=== PATIENT | male | born 1965 | race Hispanic/Latino ===

== ENCOUNTER 2022-01-29 12:09 | Inpatient (IN) | payer MEDICARE ==
[~2022-01-29] VITALS: Ht 188 cm; Wt 106.1 kg
[~2022-01-29 12:09] MED LIST: CINA30 PO; CLON0.3T PO; DILT240C97 PO; FOLI0.8T22 PO; FOLI0.8T3 PO; HYDR100T27 PO; PRED10TA3 PO; RANI150T7 PO; SEVE800T7 PO
[2022-01-29 12:35] LABS: BASOPHILS % (AUTO) 0.7 % (0.0-5.0); EOSINOPHILS % (AUTO) 3.6 % (0.0-8.0); HEMATOCRIT 31.3 % (42-54); LYMPHOCYTES % (AUTO) 6.9 % (21.0-51.0); MEAN CORPUSCULAR HEMOGLOBIN 31.4 pg (27.0-33.0); MEAN CORPUSCULAR HGB CONC 31.9 g/dL (32.0-36.0); MEAN CORPUSCULAR VOLUME 98.4 fL (79-99); MONOCYTES % (AUTO) 4.1 % (3.0-13.0); NEUTROPHILS % (AUTO) 84.3 % (40.0-77.0); PLATELET COUNT (AUTO) 162 K/uL (130-400); RED BLOOD CELL COUNT(AUTO) 3.18 MIL/uL (4.50-6.20); RED CELL DISTRIBUTION WIDTH 15.4 % (11.0-15.5)
[2022-01-29] MEDS ORDERED: MORPHINE 2 MG SYG IVP ONE ×2 (13:00→16:30)
[2022-01-29] MEDS ORDERED: ONDANSETRON 4MG INJ IVP ONE (13:00)
[2022-01-29 13:41] LABS: ALBUMIN 3.1 g/dL (3.5-5.0); BILIRUBIN,TOTAL 0.5 mg/dL (0.2-1.0); CREATININE 7.3 mg/dL (0.5-1.5); POTASSIUM 4.1 mmol/L (3.5-5.1); TOTAL PROTEIN, SERUM 8.4 g/dL (6.0-8.3)
[2022-01-29] MEDS ORDERED: ONDANSETRON 4MG INJ ONE (14:11)
[2022-01-29] MEDS ORDERED: MORPHINE 2 MG SYG ONE ×2 (14:11→20:40)
[2022-01-29 16:14] LABS: INR 1.08 (0.85-1.15); PROTHROMBIN TIME 11.7 SEC (9.6-11.6)
[2022-01-29] MEDS: HYDRALAZINE 25MG TABLET PO SCH ×2 (17:00→21:00)
[2022-01-29] MEDS ORDERED: CEFEPIME HCL 1 GM VIAL IVP SCH (17:00)
[2022-01-29] MEDS ORDERED: HYDRALAZINE 20MG/ML VIAL IV PRN (18:30)
[2022-01-29] MEDS ORDERED: IOHEXOL 350 MG/ML 100ML INFUS..BTL IV ONE ×2 (19:05→20:48)
[2022-01-29] MEDS: HYDROMORPHONE 0.5 MG SYG (0.5MG/0.5ML) IVP PRN (19:35)
[2022-01-29] MEDS ORDERED: GLUCAGON 1MG KIT 1 MG ML IM PRN (20:00)
[2022-01-29] MEDS ORDERED: DEXTROSE 50%-WATER 50 ML DISP.SYRIN IV PRN (20:00)
[2022-01-29 20:18] LABS: HEMATOCRIT 32.1 % (42-54)
[2022-01-29] MEDS: CLONIDINE HCL 0.3 MG TABLET PO SCH (21:00)
[2022-01-29] MEDS: PANTOPRAZOLE 40 MG/VIAL IVP SCH (21:14)
[2022-01-29] MEDS: LINEZOLID 600 MG/ISO-OSM 300 ML IV SCH (21:14)
[2022-01-29 21:17] LABS: HEMATOCRIT 29.5 % (42-54)
[2022-01-29] MEDS: ACETAMINOPHEN 500 MG TABLET PO PRN (21:35)
[2022-01-29] MEDS: METRONIDAZOLE 500MG/100ML BAG 100 ML IVPB SCH (23:01)
[2022-01-30] VITALS (37 sets, daily range): BP systolic 93–180; BP diastolic 47–103
[2022-01-30] MEDS: ACETAMINOPHEN 500 MG TABLET PO PRN ×2 (02:07→06:04)
[2022-01-30] MEDS ORDERED: HYDRALAZINE 25MG TABLET PO PRN (02:30)
[2022-01-30] MEDS ORDERED: LABETALOL 20MG VIAL IV PRN (02:30)
[2022-01-30] MEDS: METRONIDAZOLE 500MG/100ML BAG 100 ML IVPB SCH ×3 (05:58→22:00)
[2022-01-30] MEDS: LINEZOLID 600 MG/ISO-OSM 300 ML IV SCH ×2 (05:58→20:31)
[2022-01-30 06:16] LABS: HEMATOCRIT 27.4 % (42-54)
[2022-01-30 06:26] LABS: POTASSIUM 5.9 mmol/L (3.5-5.1)
[2022-01-30 06:28] LABS: CREATININE 9.3 mg/dL (0.5-1.5)
[2022-01-30 06:30] LABS: INR 1.18 (0.85-1.15); PROTHROMBIN TIME 12.7 SEC (9.6-11.6)
[2022-01-30 06:32] LABS: PARTIAL THROMBOPLASTIN TIME 27.8 SEC (26.3-35.5)
[2022-01-30] MEDS: CEFEPIME HCL 1 GM VIAL IVP SCH (08:27)
[2022-01-30] MEDS: CLONIDINE HCL 0.3 MG TABLET PO SCH ×2 (09:00→20:31)
[2022-01-30] MEDS: HYDRALAZINE 25MG TABLET PO SCH ×4 (09:00→20:31)
[2022-01-30] MEDS: HYDROMORPHONE 0.5 MG SYG (0.5MG/0.5ML) IVP PRN ×2 (09:51→15:02)
[2022-01-30] MEDS ORDERED: CEFAZOLIN SODIUM 1 GM VIAL ONE (09:59)
[2022-01-30] MEDS ORDERED: KETAMINE 50MG/ML SYRINGE 50 MG/ML DISP.SYRIN IV ONE (10:14)
[2022-01-30] MEDS ORDERED: PROPOFOL 10 MG/ML 20ML VIAL IV ONE (10:14)
[2022-01-30] MEDS ORDERED: MIDAZOLAM HCL 1 MG/ML 2ML VIAL ONE (10:15)
[2022-01-30] MEDS ORDERED: ROCURONIUM 10MG/1ML SYR 10 MG/ML ML ONE ×2 (10:24→10:47)
[2022-01-30] MEDS ORDERED: PHENYLEPHRINE HCL 10 MG/ML 1ML VIAL IV ONE ×3 (10:33→12:35)
[2022-01-30] MEDS ORDERED: EPHEDRINE SULFATE 50 MG/ML AMPULE ONE (11:30)
[2022-01-30] MEDS ORDERED: PROTAMINE SULFATE 10 MG/ML 5 ML VIAL ONE (13:07)
[2022-01-30] MEDS ORDERED: PROTAMINE SULFATE 10 MG/ML 25ML VIAL IV ONE (13:08)
[2022-01-30] MEDS ORDERED: ONDANSETRON 4MG INJ ONE (13:10)
[2022-01-30] MEDS ORDERED: NEOSTIGMINE 5MG/5ML SYR IV ONE (13:20)
[2022-01-30] MEDS ORDERED: GLYCOPYRROLATE 1 MG/5 ML SYRINGE ONE (13:20)
[2022-01-30] MEDS ORDERED: ALBUMIN (HUMAN) 5% 250 ML IV ONE (13:22)
[2022-01-30] MEDS ORDERED: 0.9%NACL 1000ML 1,000 ML IV ONE (14:16)
[2022-01-30] MEDS ORDERED: DIPHENHYDRAMINE HCL 25 MG CAPSULE PO PRN (15:30)
[2022-01-30] MEDS ORDERED: DEXTROSE 50%-WATER 50 ML DISP.SYRIN IV PRN (17:30)
[2022-01-30] MEDS ORDERED: GLUCAGON 1MG KIT 1 MG ML IM PRN (17:30)
[2022-01-30 18:29] LABS: HEPATITIS B SURFACE ANTIGEN Non-Reactive (Negative)
[2022-01-30] MEDS: PANTOPRAZOLE 40 MG/VIAL IVP SCH (20:31)
[2022-01-30] MEDS: DOCUSATE SODIUM 100 MG CAP PO SCH (20:31)
[2022-01-30] MEDS: INSULIN HUMULIN R 100 UNIT/ML 3ML SQ SCH (20:35)
[2022-01-31] VITALS (13 sets, daily range): BP systolic 106–153; BP diastolic 54–82
[2022-01-31] MEDS: METRONIDAZOLE 500MG/100ML BAG 100 ML IVPB SCH ×3 (00:27→13:20)
[2022-01-31] MEDS: INSULIN HUMULIN R 100 UNIT/ML 3ML SQ SCH ×4 (07:30→20:35)
[2022-01-31] MEDS: LINEZOLID 600 MG/ISO-OSM 300 ML IV SCH ×2 (08:00→20:26)
[2022-01-31] MEDS: POLYETHYLENE GLYCOL 3350 17 GM POWD.PACK PO SCH (08:00)
[2022-01-31] MEDS: ASPIRIN 81 MG EC TAB PO SCH (08:01)
[2022-01-31] MEDS: CEFEPIME HCL 1 GM VIAL IVP SCH (08:02)
[2022-01-31] MEDS: HYDRALAZINE 25MG TABLET PO SCH ×4 (08:02→20:36)
[2022-01-31] MEDS: DOCUSATE SODIUM 100 MG CAP PO SCH ×2 (08:02→20:26)
[2022-01-31 08:37] LABS: EOSINOPHILS % (AUTO) 1.7 % (0.0-8.0); HEMATOCRIT 21.3 % (42-54); LYMPHOCYTES % (AUTO) 15.5 % (21.0-51.0); MEAN CORPUSCULAR HEMOGLOBIN 31.3 pg (27.0-33.0); MEAN CORPUSCULAR HGB CONC 32.9 g/dL (32.0-36.0); MEAN CORPUSCULAR VOLUME 95.1 fL (79-99); MONOCYTES % (AUTO) 6.5 % (3.0-13.0); NEUTROPHILS % (AUTO) 74.7 % (40.0-77.0); PLATELET COUNT (AUTO) 179 K/uL (130-400); RED BLOOD CELL COUNT(AUTO) 2.24 MIL/uL (4.50-6.20); RED CELL DISTRIBUTION WIDTH 16.5 % (11.0-15.5); WHITE BLOOD COUNT (AUTO) 7.8 K/uL (4.8-10.8)
[2022-01-31] MEDS: CLONIDINE HCL 0.3 MG TABLET PO SCH ×2 (09:29→20:36)
[2022-01-31] MEDS: HYDROMORPHONE 0.5 MG SYG (0.5MG/0.5ML) IVP PRN ×2 (09:44→14:50)
[2022-01-31 10:24] LABS: POTASSIUM 5.6 mmol/L (3.5-5.1)
[2022-01-31 11:07] LABS: CREATININE 8.7 mg/dL (0.5-1.5)
[2022-01-31 11:14] LABS: MAGNESIUM 5.7 mg/dL (1.80-2.40); PHOSPHORUS 2.1 mg/dL (2.5-4.9)
[2022-01-31] MEDS: SEVELAMER HCL 800 MG TABLET PO SCH ×2 (11:24→16:03)
[2022-01-31 15:35] LABS: HEMATOCRIT 21.1 % (42-54)
[2022-01-31] MEDS ORDERED: MAGNESIUM CITRATE 296 ML SOLUTION PO ONE (17:30)
[2022-01-31] MEDS: PANTOPRAZOLE 40 MG/VIAL IVP SCH (20:26)
[2022-02-01] VITALS (22 sets, daily range): BP systolic 106–141; BP diastolic 55–84
[2022-02-01 00:01] LABS: HEMATOCRIT 21.7 % (42-54)
[2022-02-01 04:34] LABS: MEAN CORPUSCULAR HEMOGLOBIN 29.9 pg (27.0-33.0); MEAN CORPUSCULAR HGB CONC 33.8 g/dL (32.0-36.0); MEAN CORPUSCULAR VOLUME 88.5 fL (79-99); PLATELET COUNT (AUTO) 130 K/uL (130-400); RED BLOOD CELL COUNT(AUTO) 2.34 MIL/uL (4.50-6.20); RED CELL DISTRIBUTION WIDTH 18.3 % (11.0-15.5); WHITE BLOOD COUNT (AUTO) 5.6 K/uL (4.8-10.8)
[2022-02-01 04:52] LABS: POTASSIUM 5.2 mmol/L (3.5-5.1)
[2022-02-01 04:55] LABS: CREATININE 10.2 mg/dL (0.5-1.5)
[2022-02-01 05:00] LABS: HEMATOCRIT 20.7 % (42-54)
[2022-02-01] MEDS: INSULIN HUMULIN R 100 UNIT/ML 3ML SQ SCH ×4 (06:16→21:00)
[2022-02-01] MEDS: METRONIDAZOLE 500MG/100ML BAG 100 ML IVPB SCH ×3 (06:18→22:04)
[2022-02-01] MEDS: POLYETHYLENE GLYCOL 3350 17 GM POWD.PACK PO SCH (09:22)
[2022-02-01 09:23] LABS: INR 1.27 (0.85-1.15); PROTHROMBIN TIME 13.7 SEC (9.6-11.6)
[2022-02-01] MEDS: CLONIDINE HCL 0.3 MG TABLET PO SCH ×2 (09:23→22:12)
[2022-02-01 09:24] LABS: PARTIAL THROMBOPLASTIN TIME 36.1 SEC (26.3-35.5)
[2022-02-01] MEDS: CEFEPIME HCL 1 GM VIAL IVP SCH (09:24)
[2022-02-01] MEDS: LINEZOLID 600 MG/ISO-OSM 300 ML IV SCH ×2 (09:25→22:03)
[2022-02-01] MEDS: ASPIRIN 81 MG EC TAB PO SCH (09:25)
[2022-02-01] MEDS: HYDRALAZINE 25MG TABLET PO SCH ×4 (09:26→22:11)
[2022-02-01] MEDS: SEVELAMER HCL 800 MG TABLET PO SCH ×3 (09:29→16:16)
[2022-02-01] MEDS: DOCUSATE SODIUM 100 MG CAP PO SCH ×2 (09:51→22:12)
[2022-02-01] MEDS ORDERED: 0.9%NACL 1000ML 1,000 ML IV ONE (10:49)
[2022-02-01 12:21] LABS: HEMATOCRIT 21.6 % (42-54)
[2022-02-01] MEDS: ACETAMINOPHEN 500 MG TABLET PO PRN (13:55)
[2022-02-01] MEDS ORDERED: HEPARIN 5,000 UNIT VIAL ONE (14:21)
[2022-02-01] MEDS: HYDROMORPHONE 0.5 MG SYG (0.5MG/0.5ML) IVP PRN (17:06)
[2022-02-01] MEDS: PANTOPRAZOLE 40 MG/VIAL IVP SCH (22:02)
[2022-02-02] VITALS (8 sets, daily range): BP systolic 107–137; BP diastolic 55–73
[2022-02-02 04:22] LABS: HEMATOCRIT 22.7 % (42-54); MEAN CORPUSCULAR HEMOGLOBIN 29.6 pg (27.0-33.0); MEAN CORPUSCULAR HGB CONC 32.2 g/dL (32.0-36.0); MEAN CORPUSCULAR VOLUME 91.9 fL (79-99); RED BLOOD CELL COUNT(AUTO) 2.47 MIL/uL (4.50-6.20); WHITE BLOOD COUNT (AUTO) 5.5 K/uL (4.8-10.8)
[2022-02-02 04:39] LABS: POTASSIUM 4.9 mmol/L (3.5-5.1)
[2022-02-02 04:55] LABS: CREATININE 8.7 mg/dL (0.5-1.5)
[2022-02-02] MEDS: METRONIDAZOLE 500MG/100ML BAG 100 ML IVPB SCH (06:01)
[2022-02-02] MEDS: INSULIN HUMULIN R 100 UNIT/ML 3ML SQ SCH ×4 (06:01→21:00)
[2022-02-02] MEDS: ASPIRIN 81 MG EC TAB PO SCH (08:07)
[2022-02-02] MEDS: SEVELAMER HCL 800 MG TABLET PO SCH ×3 (08:07→16:45)
[2022-02-02] MEDS: POLYETHYLENE GLYCOL 3350 17 GM POWD.PACK PO SCH (08:08)
[2022-02-02] MEDS: CLONIDINE HCL 0.3 MG TABLET PO SCH ×2 (08:10→21:28)
[2022-02-02] MEDS: CEFEPIME HCL 1 GM VIAL IVP SCH (08:10)
[2022-02-02] MEDS: DOCUSATE SODIUM 100 MG CAP PO SCH ×2 (08:10→21:28)
[2022-02-02] MEDS: HYDRALAZINE 25MG TABLET PO SCH ×4 (08:32→21:28)
[2022-02-02] MEDS: LINEZOLID 600 MG/ISO-OSM 300 ML IV SCH (08:32)
[2022-02-02] MEDS ORDERED: PHARMACY COMMUNICATION MISC SCH (09:30)
[2022-02-02] MEDS: MEROPENEM 500 MG VIAL IVP SCH ×2 (10:25→21:27)
[2022-02-02] MEDS: HYDROMORPHONE 0.5 MG SYG (0.5MG/0.5ML) IVP PRN (14:30)
[2022-02-02] MEDS: PANTOPRAZOLE 40 MG/VIAL IVP SCH (21:27)
[2022-02-03] VITALS (18 sets, daily range): BP systolic 118–145; BP diastolic 59–84
[2022-02-03] MEDS: INSULIN HUMULIN R 100 UNIT/ML 3ML SQ SCH ×2 (06:02→11:30)
[2022-02-03 07:29] LABS: HEMATOCRIT 21.5 % (42-54); MEAN CORPUSCULAR HEMOGLOBIN 29.5 pg (27.0-33.0); MEAN CORPUSCULAR HGB CONC 32.6 g/dL (32.0-36.0); MEAN CORPUSCULAR VOLUME 90.7 fL (79-99); RED BLOOD CELL COUNT(AUTO) 2.37 MIL/uL (4.50-6.20); RED CELL DISTRIBUTION WIDTH 17.7 % (11.0-15.5); WHITE BLOOD COUNT (AUTO) 5.6 K/uL (4.8-10.8)
[2022-02-03 07:40] LABS: POTASSIUM 4.9 mmol/L (3.5-5.1)
[2022-02-03 07:42] LABS: CREATININE 11.1 mg/dL (0.5-1.5)
[2022-02-03] MEDS: HYDRALAZINE 25MG TABLET PO SCH ×2 (09:00→13:00)
[2022-02-03] MEDS: CLONIDINE HCL 0.3 MG TABLET PO SCH (09:00)
[2022-02-03] MEDS: SEVELAMER HCL 800 MG TABLET PO SCH ×2 (09:44→13:30)
[2022-02-03] MEDS: POLYETHYLENE GLYCOL 3350 17 GM POWD.PACK PO SCH (09:45)
[2022-02-03] MEDS: DOCUSATE SODIUM 100 MG CAP PO SCH (09:45)
[2022-02-03] MEDS: CEFEPIME HCL 1 GM VIAL IVP SCH (09:45)
[2022-02-03] MEDS: MEROPENEM 500 MG VIAL IVP SCH (09:45)
[2022-02-03] MEDS: ASPIRIN 81 MG EC TAB PO SCH (09:59)
== END 2022-02-03 16:48 | DRG 252 ==
LOC: EDH 12:09 → EDHIP 17:51 → 2BH 01-30 00:41 → 2DH 01-31 23:10
PROVIDERS: ADMIT Hospitalist; ATTEND Hospitalist
PROC: 30233N1 Transfusion of Nonautologous Red Blood Cells into Peripheral Vein, Percutaneous Approach (ICD-10-PCS; 2022-01-30)
PROC: 04UL07Z Supplement Left Femoral Artery with Autologous Tissue Substitute, Open Approach (ICD-10-PCS; 2022-01-30)
PROC: 04QL0ZZ Repair Left Femoral Artery, Open Approach (ICD-10-PCS; principal; 2022-01-30 10:00)
PROC: 0YPB0JZ Removal of Synthetic Substitute from Left Lower Extremity, Open Approach (ICD-10-PCS; 2022-01-30 10:00)
PROC: 5A1D70Z Performance of Urinary Filtration, Intermittent, Less than 6 Hours Per Day (ICD-10-PCS; 2022-01-30 10:00)
PROC: 5A1D70Z Performance of Urinary Filtration, Intermittent, Less than 6 Hours Per Day (ICD-10-PCS; 2022-02-01)
PROC: 5A1D70Z Performance of Urinary Filtration, Intermittent, Less than 6 Hours Per Day (ICD-10-PCS; 2022-02-03)
PROC: 05HP33Z Insertion of Infusion Device into Right External Jugular Vein, Percutaneous Approach (ICD-10-PCS; 2022-02-03)
DX: T82.7XXA Infection and inflammatory reaction due to other cardiac and vascular devices, implants and grafts, initial encounter (principal); A41.9 Sepsis, unspecified organism; N18.6 End stage renal disease; D62 Acute posthemorrhagic anemia; E87.1 Hypo-osmolality and hyponatremia; I12.0 Hypertensive chronic kidney disease with stage 5 chronic kidney disease or end stage renal disease; Z99.2 Dependence on renal dialysis; E11.22 Type 2 diabetes mellitus with diabetic chronic kidney disease; Z20.822 Contact with and (suspected) exposure to COVID-19; Z82.49 Family history of ischemic heart disease and other diseases of the circulatory system; Z88.1 Allergy status to other antibiotic agents; E78.5 Hyperlipidemia, unspecified; I72.4 Aneurysm of artery of lower extremity; E78.00 Pure hypercholesterolemia, unspecified; Z79.899 Other long term (current) drug therapy; Y84.1 Kidney dialysis as the cause of abnormal reaction of the patient, or of later complication, without mention of misadventure at the time of the procedure; Y92.89 Other specified places as the place of occurrence of the external cause; K59.00 Constipation, unspecified; T82.838A Hemorrhage due to vascular prosthetic devices, implants and grafts, initial encounter; E66.9 Obesity, unspecified; Z68.30 Body mass index [BMI] 30.0-30.9, adult
CPT/HCPCS: 36415; 36430; 71045; 76882; 80048; 80053; 82948; 83735; 84100; 84132; 84145; 84484; 85014; 85018; 85025; 85027; 85610; 85651; 85730; 86140; 86704; 86706; 86850; 86900; 86901; 86923; 87040; 87070; 87076; 87077; 87186; 87340; 87635; 87804; 90935; 93005; 97039; A4344; C9113; C9803; G0378; J0690; J0692; J1170; J1644; J2020; J2185; J2250; J2370; J2405; J2704; J2710; J2720; J3490; J7030; P9016; P9045; Q0163; Q9967

== ENCOUNTER 2022-03-12 11:28 | Emergency (ER) | payer MEDICARE ==
[~2022-03-12] VITALS: Ht 188 cm; Wt 90.7 kg
[~2022-03-12 11:28] MED LIST changes: -CINA30 PO; -CLON0.3T PO; -DILT240C97 PO; -FOLI0.8T22 PO; -FOLI0.8T3 PO; -HYDR100T27 PO; -PRED10TA3 PO; -RANI150T7 PO
[2022-03-12] MEDS ORDERED: ACETAMINOPHEN 500 MG TABLET ONE (12:54)
[2022-03-12] MEDS ORDERED: ACET-66 PO (13:00)
[2022-03-12 13:21] VITALS: BP 159/76
== END 2022-03-12 13:45 | disposition home or self-care (01) ==
LOC: EDH 11:28
DX: M54.50 Low back pain, unspecified (principal); I12.0 Hypertensive chronic kidney disease with stage 5 chronic kidney disease or end stage renal disease; E11.22 Type 2 diabetes mellitus with diabetic chronic kidney disease; N18.6 End stage renal disease; Z88.1 Allergy status to other antibiotic agents; W01.0XXA Fall on same level from slipping, tripping and stumbling without subsequent striking against object, initial encounter; Y93.01 Activity, walking, marching and hiking; Y92.89 Other specified places as the place of occurrence of the external cause; Y99.8 Other external cause status
CPT/HCPCS: 72100

== ENCOUNTER 2022-03-14 11:08 | Inpatient (IN) | payer MEDICARE ==
[~2022-03-14] VITALS: Ht 188 cm; Wt 97.8 kg
[~2022-03-14 11:08] MED LIST changes: +ACET-66 PO
[2022-03-14 11:51] LABS: EOSINOPHILS % (AUTO) 26.1 % (0.0-8.0); HEMATOCRIT 28.5 % (42-54); LYMPHOCYTES % (AUTO) 16.9 % (21.0-51.0); MEAN CORPUSCULAR HEMOGLOBIN 30.6 pg (27.0-33.0); MEAN CORPUSCULAR HGB CONC 33.3 g/dL (32.0-36.0); MEAN CORPUSCULAR VOLUME 91.9 fL (79-99); MONOCYTES % (AUTO) 8.2 % (3.0-13.0); NEUTROPHILS % (AUTO) 47.6 % (40.0-77.0); PLATELET COUNT (AUTO) 215 K/uL (130-400); RED CELL DISTRIBUTION WIDTH 17.1 % (11.0-15.5); WHITE BLOOD COUNT (AUTO) 9.7 K/uL (4.8-10.8)
[2022-03-14] MEDS ORDERED: MORPHINE 2 MG SYG IVP ONE ×2 (12:00→16:00)
[2022-03-14] MEDS ORDERED: ONDANSETRON 4MG INJ IVP ONE (12:00)
[2022-03-14 12:09] LABS: ALBUMIN 2.7 g/dL (3.5-5.0); POTASSIUM 5.2 mmol/L (3.5-5.1); TOTAL PROTEIN, SERUM 7.7 g/dL (6.0-8.3)
[2022-03-14 12:10] LABS: B-TYPE NATRIURETIC PEPTIDE 1210 pg/mL (0-100)
[2022-03-14 12:23] LABS: CREATININE 11.3 mg/dL (0.5-1.5)
[2022-03-14] MEDS ORDERED: HYDROMORPHONE 0.5 MG SYG (0.5MG/0.5ML) IVP PRN (18:00)
[2022-03-14] MEDS ORDERED: CLONIDINE HCL 0.1 MG TABLET PO PRN (18:00)
[2022-03-14] MEDS ORDERED: ACETAMINOPHEN 650 MG SUPPOSITORY RC PRN (18:00)
[2022-03-14] MEDS ORDERED: HYDRALAZINE 20MG/ML VIAL IV PRN (18:00)
[2022-03-14] MEDS ORDERED: ONDANSETRON 4MG INJ IVP PRN (18:00)
[2022-03-14] MEDS: METOPROLOL TARTRATE 25 MG TAB PO SCH (20:19)
[2022-03-14] MEDS: INSULIN HUMULIN R 100 UNIT/ML 3ML SQ SCH (20:57)
[2022-03-14 22:20] VITALS: BP 161/88
[2022-03-14] MEDS ORDERED: HYDR100T27 PO (22:58)
[2022-03-14] MEDS ORDERED: DILT240C94 PO (22:59)
[2022-03-14] MEDS ORDERED: GLUCAGON 1MG KIT 1 MG ML IM PRN (23:00)
[2022-03-14] MEDS ORDERED: DEXTROSE 50%-WATER 50 ML DISP.SYRIN IV PRN (23:00)
[2022-03-15] VITALS (21 sets, daily range): BP systolic 128–172; BP diastolic 76–98
[2022-03-15 00:31] LABS: CREATINE KINASE, TOTAL 81 U/L (21-232); MYOGLOBIN 395 ng/mL (10-92)
[2022-03-15 05:23] LABS: BASOPHILS % (AUTO) 1.2 % (0.0-5.0); EOSINOPHILS % (AUTO) 20.6 % (0.0-8.0); HEMATOCRIT 30.2 % (42-54); LYMPHOCYTES % (AUTO) 15.3 % (21.0-51.0); MEAN CORPUSCULAR HEMOGLOBIN 30.7 pg (27.0-33.0); MEAN CORPUSCULAR HGB CONC 32.8 g/dL (32.0-36.0); MEAN CORPUSCULAR VOLUME 93.5 fL (79-99); MONOCYTES % (AUTO) 8.8 % (3.0-13.0); NEUTROPHILS % (AUTO) 53.8 % (40.0-77.0); PLATELET COUNT (AUTO) 235 K/uL (130-400); RED BLOOD CELL COUNT(AUTO) 3.23 MIL/uL (4.50-6.20); RED CELL DISTRIBUTION WIDTH 16.9 % (11.0-15.5); WHITE BLOOD COUNT (AUTO) 10.7 K/uL (4.8-10.8)
[2022-03-15] MEDS ORDERED: METOPROLOL TARTRATE 1 MG/ML 5ML VIAL IV SCH (05:30)
[2022-03-15 05:49] LABS: MAGNESIUM 2.4 mg/dL (1.80-2.40); PHOSPHORUS 3.4 mg/dL (2.5-4.9); POTASSIUM 4.7 mmol/L (3.5-5.1)
[2022-03-15 06:02] LABS: CREATININE 9.3 mg/dL (0.5-1.5)
[2022-03-15] MEDS: INSULIN HUMULIN R 100 UNIT/ML 3ML SQ SCH ×4 (06:18→21:00)
[2022-03-15] MEDS: METOPROLOL TARTRATE 25 MG TAB PO SCH ×2 (09:16→21:45)
[2022-03-15] MEDS: FAMOTIDINE 20MG TAB PO SCH (09:16)
[2022-03-15] MEDS: DILTIAZEM 120MG SR CAP PO SCH ×2 (09:17→21:45)
[2022-03-15] MEDS: TRAMADOL HCL 50 MG TABLET PO PRN ×2 (09:23→22:07)
[2022-03-15 11:06] LABS: HEMOGLOBIN A1C 4.6 % (4.0-6.0)
[2022-03-15] MEDS ORDERED: METOPROLOL TARTRATE 1 MG/ML 5ML VIAL IV ONE (14:00)
[2022-03-15 16:09] LABS: HEPATITIS B SURFACE ANTIGEN Non-Reactive (Nonreactive)
[2022-03-15] MEDS ORDERED: METOPROLOL TARTRATE 1 MG/ML 5ML VIAL IV PRN (17:30)
[2022-03-15] MEDS: TEMAZEPAM 15 MG CAPSULE PO PRN (21:44)
[2022-03-15] MEDS: LACTULOSE 20 GM/30 ML UDCUP PO PRN (21:44)
[2022-03-15] MEDS: DIPHENHYDRAMINE HCL 25 MG CAPSULE PO PRN (22:34)
[2022-03-16] VITALS (8 sets, daily range): BP systolic 120–158; BP diastolic 72–97
[2022-03-16 04:49] LABS: HEMATOCRIT 24.9 % (42-54); MEAN CORPUSCULAR HGB CONC 33.3 g/dL (32.0-36.0); MEAN CORPUSCULAR VOLUME 92.9 fL (79-99); RED BLOOD CELL COUNT(AUTO) 2.68 MIL/uL (4.50-6.20); RED CELL DISTRIBUTION WIDTH 17.1 % (11.0-15.5); WHITE BLOOD COUNT (AUTO) 7.9 K/uL (4.8-10.8)
[2022-03-16 05:32] LABS: MAGNESIUM 2.3 mg/dL (1.80-2.40); POTASSIUM 4.6 mmol/L (3.5-5.1)
[2022-03-16 05:35] LABS: CREATININE 11.2 mg/dL (0.5-1.5)
[2022-03-16] MEDS: INSULIN HUMULIN R 100 UNIT/ML 3ML SQ SCH ×4 (05:52→20:20)
[2022-03-16] MEDS: METOPROLOL TARTRATE 25 MG TAB PO SCH ×2 (09:20→21:08)
[2022-03-16] MEDS: FAMOTIDINE 20MG TAB PO SCH (09:21)
[2022-03-16] MEDS: DILTIAZEM 120MG SR CAP PO SCH ×2 (09:21→21:09)
[2022-03-16] MEDS: DIPHENHYDRAMINE HCL 25 MG CAPSULE PO PRN ×2 (09:28→18:23)
[2022-03-16] MEDS: SODIUM HYPOCHLORITE 0.125% 473 ML SOLUTION TP SCH (18:20)
[2022-03-16] MEDS: HYDRALAZINE 25MG TABLET PO SCH (21:08)
[2022-03-17] VITALS (21 sets, daily range): BP systolic 113–165; BP diastolic 64–83
[2022-03-17] MEDS: TEMAZEPAM 15 MG CAPSULE PO PRN ×2 (00:50→20:12)
[2022-03-17] MEDS: INSULIN HUMULIN R 100 UNIT/ML 3ML SQ SCH ×4 (06:12→21:00)
[2022-03-17] MEDS: SEVELAMER HCL 800 MG TABLET PO SCH ×3 (07:49→17:01)
[2022-03-17] MEDS: FAMOTIDINE 20MG TAB PO SCH (07:50)
[2022-03-17] MEDS: SODIUM HYPOCHLORITE 0.125% 473 ML SOLUTION TP SCH (07:53)
[2022-03-17] MEDS: DILTIAZEM 120MG SR CAP PO SCH ×2 (09:00→20:15)
[2022-03-17] MEDS: METOPROLOL TARTRATE 25 MG TAB PO SCH ×2 (09:00→20:14)
[2022-03-17] MEDS: HYDRALAZINE 25MG TABLET PO SCH ×2 (09:00→20:13)
[2022-03-17] MEDS ORDERED: HEPARIN 5,000 UNIT VIAL IV SCH (12:30)
[2022-03-17] MEDS: LACTULOSE 20 GM/30 ML UDCUP PO PRN (17:01)
[2022-03-17] MEDS: ACETAMINOPHEN 325 MG TAB PO PRN (17:02)
[2022-03-17] MEDS: TRAMADOL HCL 50 MG TABLET PO PRN (20:12)
[2022-03-17] MEDS: DIPHENHYDRAMINE HCL 25 MG CAPSULE PO PRN (20:12)
[2022-03-18] VITALS: BP 133/75
[2022-03-18] MEDS: ACETAMINOPHEN 325 MG TAB PO PRN ×2 (04:02→15:35)
[2022-03-18 04:52] VITALS: BP 135/77
[2022-03-18] MEDS: INSULIN HUMULIN R 100 UNIT/ML 3ML SQ SCH ×2 (05:54→11:30)
[2022-03-18 07:00] VITALS: BP 148/87
[2022-03-18] MEDS: SEVELAMER HCL 800 MG TABLET PO SCH ×2 (08:31→12:57)
[2022-03-18] MEDS: FAMOTIDINE 20MG TAB PO SCH (08:33)
[2022-03-18] MEDS: METOPROLOL TARTRATE 25 MG TAB PO SCH (08:35)
[2022-03-18] MEDS: HYDRALAZINE 25MG TABLET PO SCH (08:36)
[2022-03-18] MEDS: DILTIAZEM 120MG SR CAP PO SCH (08:37)
[2022-03-18] MEDS: SODIUM HYPOCHLORITE 0.125% 473 ML SOLUTION TP SCH (08:47)
[2022-03-18 12:00] VITALS: BP 134/77
[2022-03-18 16:00] VITALS: BP 143/69
== END 2022-03-18 19:30 | DRG 640 ==
LOC: EDH 11:08 → OBSVTOIN 17:56 → EDHIP 17:56 → 3AH 22:16
PROVIDERS: ADMIT Internal Medicine Critical Care Medicine; ATTEND Internal Medicine Critical Care Medicine
PROC: 5A1D70Z Performance of Urinary Filtration, Intermittent, Less than 6 Hours Per Day (ICD-10-PCS; principal; 2022-03-14)
PROC: 5A1D70Z Performance of Urinary Filtration, Intermittent, Less than 6 Hours Per Day (ICD-10-PCS; 2022-03-15)
PROC: 5A1D70Z Performance of Urinary Filtration, Intermittent, Less than 6 Hours Per Day (ICD-10-PCS; 2022-03-17)
DX: E87.70 Fluid overload, unspecified (principal); N18.6 End stage renal disease; I12.0 Hypertensive chronic kidney disease with stage 5 chronic kidney disease or end stage renal disease; Z20.822 Contact with and (suspected) exposure to COVID-19; Z99.2 Dependence on renal dialysis; E11.22 Type 2 diabetes mellitus with diabetic chronic kidney disease; D63.1 Anemia in chronic kidney disease; E78.00 Pure hypercholesterolemia, unspecified; I72.4 Aneurysm of artery of lower extremity; M32.9 Systemic lupus erythematosus, unspecified; Z91.19 Patient's noncompliance with other medical treatment and regimen
CPT/HCPCS: 36415; 71045; 72100; 72131; 80048; 80053; 82550; 82948; 83036; 83735; 83874; 83880; 84100; 84132; 84484; 85025; 85027; 86706; 87340; 87635; 90935; 93005; 97039; C9803; G0378; J1644; J2405; J3490; Q0163

== ENCOUNTER 2022-07-09 06:21 | Emergency (ER) | payer MEDICARE ==
[~2022-07-09] VITALS: Ht 188 cm; Wt 101.2 kg
[~2022-07-09 06:21] MED LIST changes: +BISA-151 PO; +HYDR100T27 PO
[2022-07-09] MEDS ORDERED: ALTEPLASE 2MG VIAL 2 MG/VIAL VIAL IVCATH ONE (07:00)
[2022-07-09] MEDS: ALTEPLASE 2MG VIAL 2 MG/VIAL VIAL IVCATH SCH ×2 (07:51→07:52)
[2022-07-09 08:36] VITALS: BP 133/60
[2022-07-09] MEDS ORDERED: ACETAMINOPHEN 500 MG TABLET ONE (09:25)
[2022-07-09] MEDS ORDERED: ACETAMINOPHEN 500 MG TABLET PO ONE (09:30)
== END 2022-07-09 09:33 | disposition home or self-care (01) ==
LOC: EDH 06:21
DX: T82.898A Other specified complication of vascular prosthetic devices, implants and grafts, initial encounter (principal); Y73.8 Miscellaneous gastroenterology and urology devices associated with adverse incidents, not elsewhere classified; Y92.89 Other specified places as the place of occurrence of the external cause; I12.0 Hypertensive chronic kidney disease with stage 5 chronic kidney disease or end stage renal disease; N18.6 End stage renal disease; E11.22 Type 2 diabetes mellitus with diabetic chronic kidney disease; Z99.2 Dependence on renal dialysis; E78.00 Pure hypercholesterolemia, unspecified; Z88.1 Allergy status to other antibiotic agents
CPT/HCPCS: 99285; 36593; J2997 ×2

== ENCOUNTER 2022-09-19 15:11 | Inpatient (IN) | payer MEDICARE ==
[~2022-09-19] VITALS: Ht 188 cm; Wt 101.1 kg
[2022-09-19 15:42] LABS: HEMATOCRIT 37.4 % (42-54); MEAN CORPUSCULAR HEMOGLOBIN 32.4 pg (27.0-33.0); MEAN CORPUSCULAR HGB CONC 32.4 g/dL (32.0-36.0); RED BLOOD CELL COUNT(AUTO) 3.74 MIL/uL (4.50-6.20); WHITE BLOOD COUNT (AUTO) 3.5 K/uL (4.8-10.8)
[2022-09-19 15:53] LABS: INR 1.05 (0.85-1.15); PROTHROMBIN TIME 11.4 SEC (9.6-11.6)
[2022-09-19 15:56] LABS: ALBUMIN 3.4 g/dL (3.5-5.0); POTASSIUM 3.9 mmol/L (3.5-5.1); TOTAL PROTEIN, SERUM 8.7 g/dL (6.0-8.3)
[2022-09-19 15:59] LABS: CREATININE 11.4 mg/dL (0.5-1.5)
[2022-09-19] MEDS ORDERED: ACETAMINOPHEN 325 MG TAB PO ONE (17:30)
[2022-09-19] MEDS ORDERED: ONDANSETRON 4MG INJ IVP PRN (18:30)
[2022-09-19] MEDS ORDERED: VANCOMYCIN PROTOCOL PER PHARMACY IV SCH (18:30)
[2022-09-19] MEDS: INSULIN HUMULIN R 100 UNIT/ML 3ML SQ SCH (21:00)
[2022-09-20] VITALS (14 sets, daily range): BP systolic 141–167; BP diastolic 63–88
[2022-09-20 04:59] LABS: BASOPHILS % (AUTO) 1.7 % (0.0-5.0); EOSINOPHILS % (AUTO) 12.1 % (0.0-8.0); HEMATOCRIT 32.9 % (42-54); LYMPHOCYTES % (AUTO) 27.4 % (21.0-51.0); MEAN CORPUSCULAR HEMOGLOBIN 32.5 pg (27.0-33.0); MEAN CORPUSCULAR HGB CONC 32.5 g/dL (32.0-36.0); MONOCYTES % (AUTO) 7.6 % (3.0-13.0); NEUTROPHILS % (AUTO) 50.9 % (40.0-77.0); PLATELET COUNT (AUTO) 130 K/uL (130-400); RED BLOOD CELL COUNT(AUTO) 3.29 MIL/uL (4.50-6.20); WHITE BLOOD COUNT (AUTO) 3.5 K/uL (4.8-10.8)
[2022-09-20 05:19] LABS: INR 1.07 (0.85-1.15); PROTHROMBIN TIME 11.6 SEC (9.6-11.6)
[2022-09-20 05:20] LABS: PARTIAL THROMBOPLASTIN TIME 29.5 SEC (26.3-35.5)
[2022-09-20 05:24] LABS: POTASSIUM 4.8 mmol/L (3.5-5.1)
[2022-09-20 05:30] LABS: CREATININE 13.1 mg/dL (0.5-1.5)
[2022-09-20] MEDS: INSULIN HUMULIN R 100 UNIT/ML 3ML SQ SCH ×3 (06:32→19:56)
[2022-09-20] MEDS: DEXTROSE 50%-WATER 50 ML DISP.SYRIN IV SCH (11:38)
[2022-09-20] MEDS ORDERED: LIDOCAINE HCL 1% MDV 50ML VIAL ONE (12:27)
[2022-09-20] MEDS ORDERED: HEPARIN 1,000 UNIT VIAL ONE (12:27)
[2022-09-20] MEDS ORDERED: MIDAZOLAM HCL 1 MG/ML 2ML VIAL ONE (12:54)
[2022-09-20] MEDS ORDERED: FENTANYL CITRATE PF 50 MCG/1 ML 2ML VIAL ONE (12:54)
[2022-09-20] MEDS ORDERED: IOHEXOL-350 50ML VIAL IV ONE (13:00)
[2022-09-20] MEDS ORDERED: SEVELAMER HCL 800 MG TABLET ONE (15:33)
[2022-09-20] MEDS: SEVELAMER HCL 800 MG TABLET PO SCH (16:56)
[2022-09-20] MEDS ORDERED: BISACODYL 5 MG TABLET.DR PO ONE (18:08)
[2022-09-20] MEDS ORDERED: BISACODYL 5 MG TABLET.DR PO SCH (18:30)
[2022-09-20] MEDS: HYDRALAZINE 25MG TABLET PO SCH (19:55)
[2022-09-20] MEDS: ACETAMINOPHEN 325 MG TAB PO PRN (23:57)
[2022-09-21 04:00] VITALS: BP 153/88
[2022-09-21] MEDS: INSULIN HUMULIN R 100 UNIT/ML 3ML SQ SCH ×4 (06:11→20:59)
[2022-09-21 07:25] VITALS: BP 156/73
[2022-09-21] MEDS: HYDRALAZINE 25MG TABLET PO SCH ×2 (08:20→21:03)
[2022-09-21] MEDS: BISACODYL 5 MG TABLET.DR PO SCH ×2 (08:21→08:25)
[2022-09-21] MEDS: SEVELAMER HCL 800 MG TABLET PO SCH ×3 (08:21→16:45)
[2022-09-21] MEDS ORDERED: BISACODYL 5 MG TABLET.DR PO SCH ×2 (09:00)
[2022-09-21 11:20] VITALS: BP 151/69
[2022-09-21] MEDS: DEXTROSE 50%-WATER 50 ML DISP.SYRIN IV SCH (12:00)
[2022-09-21] MEDS: ACETAMINOPHEN 325 MG TAB PO PRN ×2 (13:30→21:24)
[2022-09-21] MEDS ORDERED: CLON0.3T PO (13:36)
[2022-09-21] MEDS ORDERED: CINA30 PO (13:36)
[2022-09-21] MEDS ORDERED: PANT40TA55 PO (13:36)
[2022-09-21] MEDS ORDERED: FOLI0.8T22 PO (13:36)
[2022-09-21 15:20] VITALS: BP 170/84
[2022-09-21] MEDS ORDERED: MEGE40L PO (16:09)
[2022-09-21] MEDS: [UNRECOGNIZED DRUG - OTHER] IV SCH ×2 (16:30→16:45)
[2022-09-21] MEDS: DAPTOMYCIN IV SCH ×2 (16:30→16:45)
[2022-09-21 19:09] VITALS: BP 148/77
[2022-09-21] MEDS: CLONIDINE HCL 0.3 MG TABLET PO SCH (21:01)
[2022-09-22] VITALS (31 sets, daily range): BP systolic 132–162; BP diastolic 62–80
[2022-09-22] MEDS: INSULIN HUMULIN R 100 UNIT/ML 3ML SQ SCH ×4 (06:27→21:00)
[2022-09-22] MEDS: SEVELAMER HCL 800 MG TABLET PO SCH ×3 (08:00→18:25)
[2022-09-22] MEDS: MEGESTROL 400 MG/10 ML UDCUP PO SCH (09:00)
[2022-09-22] MEDS: CLONIDINE HCL 0.3 MG TABLET PO SCH ×2 (09:00→21:47)
[2022-09-22] MEDS: CINACALCET 30 MG TAB PO SCH (09:00)
[2022-09-22] MEDS: Vitamin B Complex/Vit C/Folic Acid PO SCH (09:00)
[2022-09-22] MEDS: BISACODYL 5 MG TABLET.DR PO SCH (09:00)
[2022-09-22] MEDS: HYDRALAZINE 25MG TABLET PO SCH ×2 (10:08→21:48)
[2022-09-22] MEDS ORDERED: HEPARIN 10,000 UNIT/10ML (1,000 UNIT/ML) VIAL ONE (11:19)
[2022-09-22] MEDS ORDERED: FENTANYL CITRATE PF 50 MCG/1 ML 2ML VIAL ONE (11:20)
[2022-09-22] MEDS ORDERED: MIDAZOLAM HCL 1 MG/ML 2ML VIAL ONE (11:20)
[2022-09-22] MEDS ORDERED: LIDOCAINE HCL 1% MDV 50ML VIAL ONE (11:20)
[2022-09-22] MEDS ORDERED: IOHEXOL-350 50ML VIAL IV ONE (11:37)
[2022-09-22] MEDS: DEXTROSE 50%-WATER 50 ML DISP.SYRIN IV SCH (12:00)
[2022-09-22] MEDS ORDERED: HEPARIN 1,000 UNIT VIAL ONE ×2 (12:10→12:23)
[2022-09-22] MEDS: PANTOPRAZOLE 40 MG TAB DR PO SCH (13:07)
[2022-09-22] MEDS ORDERED: DIPHENHYDRAMINE HCL 25 MG CAPSULE PO PRN (14:30)
[2022-09-22] MEDS: ACETAMINOPHEN 325 MG TAB PO PRN (15:45)
[2022-09-22] MEDS: HEPARIN 5,000 UNIT VIAL IRRIG SCH ×2 (15:49→16:00)
[2022-09-23 00:12] VITALS: BP 122/64
[2022-09-23 03:12] VITALS: BP 123/61
[2022-09-23 04:47] LABS: HEMATOCRIT 30.5 % (42-54); MEAN CORPUSCULAR HEMOGLOBIN 31.8 pg (27.0-33.0); MEAN CORPUSCULAR HGB CONC 32.5 g/dL (32.0-36.0); MEAN CORPUSCULAR VOLUME 98.1 fL (79-99); RED BLOOD CELL COUNT(AUTO) 3.11 MIL/uL (4.50-6.20); RED CELL DISTRIBUTION WIDTH 15.4 % (11.0-15.5); WHITE BLOOD COUNT (AUTO) 3.3 K/uL (4.8-10.8)
[2022-09-23 05:00] LABS: MAGNESIUM 2.4 mg/dL (1.80-2.40); POTASSIUM 4.9 mmol/L (3.5-5.1)
[2022-09-23 05:04] LABS: CREATININE 17.9 mg/dL (0.5-1.5)
[2022-09-23] MEDS: INSULIN HUMULIN R 100 UNIT/ML 3ML SQ SCH ×4 (05:24→21:00)
[2022-09-23 08:00] VITALS: BP 127/62
[2022-09-23] MEDS: Vitamin B Complex/Vit C/Folic Acid PO SCH (09:14)
[2022-09-23] MEDS: CINACALCET 30 MG TAB PO SCH (09:14)
[2022-09-23] MEDS: CLONIDINE HCL 0.3 MG TABLET PO SCH ×3 (09:14→21:51)
[2022-09-23] MEDS: BISACODYL 5 MG TABLET.DR PO SCH (09:14)
[2022-09-23] MEDS: MEGESTROL 400 MG/10 ML UDCUP PO SCH (09:14)
[2022-09-23] MEDS: PANTOPRAZOLE 40 MG TAB DR PO SCH (09:14)
[2022-09-23] MEDS: HYDRALAZINE 25MG TABLET PO SCH ×2 (09:16→21:52)
[2022-09-23] MEDS: SEVELAMER HCL 800 MG TABLET PO SCH ×3 (09:23→17:07)
[2022-09-23 11:47] VITALS: BP 100/60
[2022-09-23] MEDS: DEXTROSE 50%-WATER 50 ML DISP.SYRIN IV SCH (12:00)
[2022-09-23 16:00] VITALS: BP 109/56
[2022-09-23] MEDS: ACETAMINOPHEN 325 MG TAB PO PRN (17:10)
[2022-09-23 19:30] VITALS: BP 116/69
[2022-09-23] MEDS: DAPTOMYCIN IV SCH (22:32)
[2022-09-23] MEDS: [UNRECOGNIZED DRUG - OTHER] IV SCH (22:32)
[2022-09-24] VITALS (12 sets, daily range): BP systolic 119–147; BP diastolic 62–72
[2022-09-24] MEDS: ACETAMINOPHEN 325 MG TAB PO PRN (02:52)
[2022-09-24] MEDS: INSULIN HUMULIN R 100 UNIT/ML 3ML SQ SCH ×2 (06:09→11:30)
[2022-09-24] MEDS: Vitamin B Complex/Vit C/Folic Acid PO SCH (08:04)
[2022-09-24] MEDS: SEVELAMER HCL 800 MG TABLET PO SCH ×3 (08:04→17:06)
[2022-09-24] MEDS: CINACALCET 30 MG TAB PO SCH (08:04)
[2022-09-24] MEDS: BISACODYL 5 MG TABLET.DR PO SCH (08:04)
[2022-09-24] MEDS: PANTOPRAZOLE 40 MG TAB DR PO SCH (08:04)
[2022-09-24] MEDS: MEGESTROL 400 MG/10 ML UDCUP PO SCH (08:05)
[2022-09-24] MEDS: CLONIDINE HCL 0.3 MG TABLET PO SCH (09:00)
[2022-09-24] MEDS: HYDRALAZINE 25MG TABLET PO SCH (09:00)
[2022-09-24] MEDS: DEXTROSE 50%-WATER 50 ML DISP.SYRIN IV SCH (12:00)
[2022-09-24] MEDS ORDERED: ALTEPLASE 2MG VIAL 2 MG/VIAL VIAL IVCATH STA (14:33)
[2022-09-24] MEDS: HEPARIN 5,000 UNIT VIAL IRRIG SCH (16:30)
== END 2022-09-24 18:15 | disposition left against medical advice (07) | DRG 314 ==
LOC: EDH 15:11 → EDHIP 18:26 → OBSVTOIN 18:26 → 3AH 09-20 01:39 → 3DH 09-20 02:02
PROVIDERS: ADMIT Internal Medicine Infectious Disease; ATTEND Internal Medicine Infectious Disease
PROC: 05JY3ZZ Inspection of Upper Vein, Percutaneous Approach (ICD-10-PCS; principal; 2022-09-20)
PROC: 06HM33Z Insertion of Infusion Device into Right Femoral Vein, Percutaneous Approach (ICD-10-PCS; 2022-09-22)
PROC: B54BZZA Ultrasonography of Right Lower Extremity Veins, Guidance (ICD-10-PCS; 2022-09-22)
PROC: 5A1D70Z Performance of Urinary Filtration, Intermittent, Less than 6 Hours Per Day (ICD-10-PCS; 2022-09-22)
PROC: 5A1D70Z Performance of Urinary Filtration, Intermittent, Less than 6 Hours Per Day (ICD-10-PCS; 2022-09-24)
DX: T82.898A Other specified complication of vascular prosthetic devices, implants and grafts, initial encounter (principal); N18.6 End stage renal disease; L03.314 Cellulitis of groin; E87.1 Hypo-osmolality and hyponatremia; I12.0 Hypertensive chronic kidney disease with stage 5 chronic kidney disease or end stage renal disease; Z20.822 Contact with and (suspected) exposure to COVID-19; Z53.29 Procedure and treatment not carried out because of patient's decision for other reasons; E66.9 Obesity, unspecified; E78.00 Pure hypercholesterolemia, unspecified; Y83.8 Other surgical procedures as the cause of abnormal reaction of the patient, or of later complication, without mention of misadventure at the time of the procedure; E11.22 Type 2 diabetes mellitus with diabetic chronic kidney disease; Z91.199 Patient's noncompliance with other medical treatment and regimen due to unspecified reason; Z99.2 Dependence on renal dialysis; Y92.89 Other specified places as the place of occurrence of the external cause; Z91.14 Patient's other noncompliance with medication regimen; Z83.3 Family history of diabetes mellitus; Z68.28 Body mass index [BMI] 28.0-28.9, adult
CPT/HCPCS: 36005; 36415; 36556; 75822; 77001; 80048; 80053; 82948; 83735; 84132; 85025; 85027; 85610; 85730; 87340; 87635; 90935; 99156; 99157; C1752; C1769; C1894; C9803; G0378; J0878; J1644; J2250; J2997; J3010; J3490; J7070; Q0163; Q9967